=== PATIENT | male | born 1970 | race Caucasian/White ===

== ENCOUNTER 2020-08-11 20:01 | Emergency (ER) | payer OTHER ==
[~2020-08-11] VITALS: Ht 180.3 cm; Wt 113.4 kg
[2020-08-11] MEDS ORDERED: LISINOPRIL2.5 MG PO (20:12)
[2020-08-11] MEDS ORDERED: TOPROL XL50 MG PO (20:12)
[2020-08-11] MEDS ORDERED: LIPITOR 20 MG T20 M1 PO (20:13)
[2020-08-11] MEDS ORDERED: LASIX 40 MG TAB40 MG PO (20:13)
[2020-08-11] MEDS ORDERED: JANTOVEN3 MG PO (20:13)
[2020-08-11] MEDS ORDERED: KLOR-CON 1010 MEQ PO (20:13)
[2020-08-11] MEDS ORDERED: ESCITALOPRAM OX10 MG PO (20:14)
[2020-08-11] MEDS ORDERED: ASA81BEC PO (20:15)
[2020-08-11 20:25] LABS: MPV 8.7 fl. (7.2-11.1)
[2020-08-11 20:27] LABS: ABSOLUTE BASOPHILS 0.1 thou/uL (0.0-0.2); ABSOLUTE EOSINOPHILS 0.1 thou/uL (0.0-0.7); ABSOLUTE LYMPHOCYTES 1.5 thou/uL (0.8-5.3); ABSOLUTE MONOCYTES 0.8 thou/uL (0.0-1.2); BASOPHILS 0.7 %; EOSINOPHILS 0.6 %; HEMOGLOBIN 15.9 gm/dL (14.0-18.0); LYMPHOCYTES 12.1 %; MCHC 34.6 g/dL (28.0-37.0); MCV 92.5 fL (80.0-100.0); MONOCYTES 6.4 %; NUCLEATED RBCS 0 /100WBC; PLATELET COUNT* 186 thou/uL (150-400); POLYS 80.2 %; RBC 4.97 mil/uL (4.50-6.00); RDW-CV 14.7 % (10.5-14.5); WBC 12.5 thou/uL (4.0-11.0)
[2020-08-11 20:32] LABS: CREATININE 1.3 mg/dL (0.6-1.3); POTASSIUM 4.3 mmol/L (3.5-5.1)
[2020-08-11 20:33] LABS: PROTIME 29.2 Seconds (9.20-11.50)
[2020-08-11 20:42] LABS: ALBUMIN 4.1 g/dL (3.4-5.0); TOTAL BILIRUBIN 0.6 mg/dL (<0.1-1.0); TOTAL PROTEIN 7.6 g/dL (6.4-8.2)
[2020-08-11 22:49] VITALS: BP 137/79
--- NOTE | 2020-08-12 12:15 | EKG ---
[place] [address] ELECTROCARDIOGRAM REPORT Name: TED RAMIREZ Room: [facility]#: [id number] Admission: 08/11/20 Attend Phys: Discharge: 08/11/20 Date of : 66 Date of Service: 08/11/20 [facility] Report #: [id number] THIS REPORT FOR: //name// [facility] ED Test Date: 2020-08-11 Test Time: 20:04:48 Pat Name: TED RAMIREZ Department: Room: Gender: Crew Leader: [place] : 1970 Requested By: Radha Castrejon Order Number: [id number] MD: Carl Menendez Measurements Intervals [place] [facility] Rate: 94 P: 76 [place]: 41 QRS: 181 QRSD: 147 T: 26 QT: 419 QTc: 525 Interpretive Statements Atrial-sensed ventricular-paced complexes No further analysis attempted due to paced rhythm Baseline wander in lead(s) V2 No previous ECG available for comparison Electronically Signed On 08-12-2020 12:15:18 CDT by Carl Menendez [email or web address] <ELECTRONICALLY SIGNED> By: Carl Menendez MD, FACC 08/12/20 1215 03 03 Carl Menendez MD, FAC /EPI
== END 2020-08-11 22:50 | disposition home or self-care (01) ==
LOC: M.ERS 20:01
PROVIDERS: Emergency Medicine
DX: R07.89 Other chest pain (principal); F15.10 Other stimulant abuse, uncomplicated; Z88.5 Allergy status to narcotic agent; Z88.6 Allergy status to analgesic agent